=== PATIENT | male | born 1995 | race Caucasian/White ===

== ENCOUNTER → 2023-07-08 07:16 | Outpatient (REF) | payer BC, SELFPAY | LOC: HWRAD 07:16 | PROVIDERS: ATTENDING PHYSICIAN Nurse Practitioner; FAMILY PHYSICIAN Family Medicine | DX: R79.89 Other specified abnormal findings of blood chemistry (principal) | CPT/HCPCS: 76700 ==

== ENCOUNTER 2024-10-25 18:57 | Emergency (ER) | payer OTHER, SELFPAY ==
[2024-10-25 18:59] VITALS: BP 145/86
[2024-10-25 19:23] LABS: % Basophils 0.4 % (0-2); % Eosinophils 0.9 % (0-6); % Immature Granulocytes 0.4 % (0-0.5); % Lymphocytes 24.8 % (20.5-51.1); % Monocytes 10.4 % (1.7-9.3); % Neutrophils 63.1 % (42.2-75.2); Absolute Eosinophils 0.1 10^3/uL (0-0.7); Absolute Lymphocytes 1.3 10^3/uL (1.2-3.4); Absolute Monocytes 0.6 10^3/uL (0.1-0.6); Absolute Neutrophils 3.4 10^3/uL (1.4-6.5); Hematocrit 39.7 % (39.0-52.0); Hemoglobin 14.1 g/dL (13.0-18.0); Mean Corp Hgb Conc. 35.5 g/dL (33.0-37.0); Mean Corpuscular Hgb 31.8 pg (27.0-31.0); Mean Corpuscular Volume 89.6 fL (80.0-94.0); Mean Platelet Volume 9.4 fL (7.4-10.4); Nucleated Red Blood Cells % 0 % (-); Platelet Count 237 10^3/uL (130-400); Red Blood Cell Count 4.43 10^6/uL (4.70-6.10); Red Cell Dist. Width 11.8 % (11.5-14.5); White Blood Cell Count 5.4 10^3/uL (4.8-10.8)
[2024-10-25 19:36] LABS: ALT (SGPT) 166 U/L (0-50); AST (SGOT) 66 U/L (17-59); Alkaline Phosphatase 102 U/L (38-126); Blood Urea Nitrogen 16 mg/dl (9-20); Calcium 9.8 mg/dl (8.4-10.2); Carbon Dioxide 26 mmol/L (22-30); Chloride 106 mmol/L (98-107); Glucose 90 mg/dl (70-99); Potassium 4.2 mmol/L (3.5-5.1); Sodium 140 mmol/L (135-145); Total Bilirubin 0.4 mg/dl (0.2-1.3); Total Protein 7.1 g/dl (6.3-8.2); eGFR > 60.00
[2024-10-25 19:36] LABS: COVID-19 Antigen Negative (Negative)
[2024-10-25 19:47] LABS: Troponin I < 0.012 ng/ml
--- NOTE | 2024-10-25 22:21 | ED.GENMED ---
History of Present Illness
General
Chief Complaint: Weakness
Source: patient and family
Time Seen by Provider: 10/25/24 22:06
History of Present Illness
History of Present Illness:
Pleasant 29-year-old male that presents to the emergency department with malaise. He states he has not been feeling well for several months. He follow-up with his family doctor and had outpatient labs. The labs showed the elevated liver enzymes.
He does report that over the last 2 days his fatigue has increased. Patient was at a meeting yesterday with at work and had 20 seconds of left-sided chest pain. He does report that the pain resolved very quickly and massaging his chest helped ease
the pain. Denies shortness of breath. Patient did not have return of symptoms. He is followed by his family doctor who is monitoring his elevated LFTs.
Past History
Social History
Tobacco: Non-smoker
Alcohol: None
Drug: None
Review of Systems
Review of Systems
Allergies reviewed?: Yes
All Other Systems: ROS reviewed and negative except as documented in HPI and ROS
Constitutional: Reports fatigue
EENT: Reports no symptoms
Respiratory: Reports no symptoms
Cardiac: Reports no symptoms
ABD/GI: Reports no symptoms
: Reports no symptoms
Musculoskeletal: Reports no symptoms
Skin: Reports no symptoms
Neurological: Reports no symptoms
Endocrine: Reports no symptoms
Hematologic/Lymphatic: Reports no symptoms
Psychiatric: Reports anxiety
Phy Exam
General Physical Exam
General Presentation: well appearing and no apparent distress
General Skin: warm and dry
General Habitus: normal
General Mental: alert
General Hydration: appears well hydrated
ENT Exam
ENT Exam: EOMI, pharynx normal, neck supple and normocephalic
Eye Exam
Eye Exam: PERRL, cornea clear and conjunctiva normal
Cardiovascular Exam
Cardiovascular Exam: regular rate/rhythm, no edema, no murmur and normal peripheral pulses
Pulmonary Exam
Pulmonary Exam: lungs clear, no respiratory distress, no rales, no crackles, no rhonchi, no stridor, no wheezing and no cough
Gastrointestinal Exam
Gastrointestinal Exam: normal bowel sounds, non tender, soft, no organomegaly, no pulsatile mass and non distended
Neurological Exam
Neurological Exam: alert, oriented x3, no motor deficits and speech normal
Musculoskeletal Exam
Musculoskeletal Exam: full ROM and no edema
Skin Exam
Skin Exam: normal color, warm/dry, no rash and no petechia
Psychiatric Exam
Psychiatric Exam: normal mood/affect
Course
Orders/Labs/Results
Orders:
Orders
10/25/24 19:02
Electrocardiogram (*1) Urgent
Reason for Study: Chest Pain
EKG- Treatment ONCE
10/25/24 19:09
COVID-19 Antigen Urgent
Source: Nasal Swab
Lyme Progressive Urgent
Comment: ADD ON
Monotest Urgent
Comment: ADD ON
TSH Urgent
Comment: ADD ON
Influenza A+B Rapid Molecular Urgent
GABRIELLE Source: Nasal Swab
Specimen Description:
10/25/24 19:11
Complete Blood Count/With Diff Urgent
Comprehensive Metabolic Panel Urgent
Troponin I Urgent
10/25/24 22:08
US Abdomen Complete/Upper Urgent
Comment:
Reason For Exam: elevated LFTs, weakness
10/25/24 22:23
Add On- LAB Urgent
Tests Added?: TSH, [place], Lyme titer
10/25/24 22:25
0.9% Sodium Chloride 1000 ml [Nss] 1,000 ml IV BOLUS
Abnormal Lab Results
10/25/24
19:11
RBC 4.43 L 10^6/uL
(4.70-6.10)
MCH 31.8 H pg
(27.0-31.0)
Monocytes % 10.4 H %
(1.7-9.3)
AST 66 H U/L
(17-59)
ALT 166 H U/L
(0-50)
10/25/24 19:11
10/25/24 19:11
Vital Signs
Initial and Last Documented VS:
Initial Vital Signs
Temp Pulse Resp BP Pulse Ox
99.5 F 87 16 145/86 98
10/25/24 18:59 10/25/24 18:59 10/25/24 18:59 10/25/24 18:59 10/25/24 18:59
Last Documented Vital Signs
Temp Pulse Resp BP Pulse Ox
99.5 F 66 16 122/76 97
10/25/24 18:59 10/26/24 00:27 10/25/24 18:59 10/26/24 01:00 10/26/24 01:00
*Critical Care Note
Total Time (30-74mins, 75-104mins- exclusive of procedures): Not Applicable
Update Note
Update Note:
NAME: NICK LIMA JR
DATE OF EXAM: 10/25/2024
Patient No: [id number]
Physician: VANE
Date of : 1995
Past Medical History (entered by Technologist):
Reason For Exam (entered by Technologist):
Other Notes (entered by Technologist):
Additional Information (per [facility]iologist):
ULTRASOUND ABDOMEN
IMPRESSION:
Normal gallbladder.
No gallstones, gallbladder wall thickening, or pericholecystic fluid.
Negative sonographic Cohen's sign.
No biliary ductal dilatation.
The visualized common duct measures 4 mm in caliber.
Normal liver, spleen, imaged segments of the aorta, and partially visualized pancreas.
Normal bilateral kidneys.
No hydronephrosis.
ED Attending Note
-
Portions of this chart may have been created with voice recognition software.� Occasional wrong word or��sound alike� substitutions may have occurred due to the inherent limitations of voice recognition software.
Discharge Plan
Departure
Patient Disposition: Home (Routine Discharge)
Date of Disposition: 10/26/24
Time of Disposition: 00:56
Patient with high blood pressure during this ER visit?: Yes
Condition: Fair
Discharge Problem:
Weakness, Elevated LFTs
Instructions: Generalized Weakness (DC), Liver panel, BLOOD PRESSURE
Referrals:
Heather Aleman NP [Family Provider, Internal Medicine]
Fani Andersen DO [Active, Gastroenterology]
Activity Restrictions/Additional Instructions:
Thank You for choosing [facility].
It was a pleasure meeting you and taking part in your care. We hope for your continued healing and wellness.
Please read discharge instructions in their entirety. However, they are for general education and may not describe your exact diagnosis at discharge. Information on your ER visit and medical conditions were discussed with you along with appropriate
follow up information...
If indicated, please take your medications as instructed and indicated on discharge paperwork.
Please schedule a follow up appointment as directed. Call to schedule an appointment
Please return to the emergency department with ANY change in, persisting, or worsening of symptoms. If any of your symptoms do not improve, or persist, or become more severe within 6-12 hours, please return to the emergency department for further
care.
Please return to the emergency department if you develop a headache, neck pain/stiffness, fever greater than 100.4F, chest pain, shortness of breath, persistent nausea, vomiting, slurred speech, difficulty walking, numbness/tingling, weakness, signs
of infection or any other symptoms that are worrisome to you.
If you have any questions or concerns please do not hesitate to call the Hospital at or E-mail me directly at [email or web address]
Interventions
Interventions:
*Risk Screen - Suicide Last Done: 10/25/24 22:49
*General Assessment Last Done: 10/25/24 22:49
*Neglect/Abuse Screening Last Done: 10/25/24 22:49
*ED- Fall Risk Assessment Last Done: 10/25/24 22:49
*ED COVID-19 Vaccine History Last Done: 10/25/24 22:49
*Nursing Disposition Last Done: 10/26/24 01:09
ED- Cardiac Assessment Last Done: 10/25/24 22:50
ED- Neurological Assessment Last Done: 10/25/24 22:50
ED- Pulmonary Assessment Last Done: 10/25/24 22:50
Discharge Date and Time
Discharge Date/Time: 10/26/24 01:09
Print Language: SINHALA
[2024-10-25] MEDS: NSS 1000 IV (22:58)
[2024-10-25 23:03] LABS: Monotest Negative (Negative)
[2024-10-25 23:36] LABS: TSH 2.33 uIU/ml (0.47-4.68)
[2024-10-26 00:05] VITALS: BP 133/62
[2024-10-26 01:00] VITALS: BP 122/76
[2024-10-27 16:08] LABS: Lyme Antibody Screen, EIA Negative (Negative)
== END 2024-10-26 01:09 | disposition home or self-care (01) ==
LOC: EMR 18:57
PROVIDERS: Emergency Medicine; EMERGENCY PHYSICIAN Student in an Organized Health Care Education/Training Program; FAMILY PHYSICIAN Nurse Practitioner Family
DX: R53.1 Weakness (principal); R07.89 Other chest pain; R53.83 Other fatigue; R53.81 Other malaise; R94.5 Abnormal results of liver function studies; Z11.52 Encounter for screening for COVID-19; R03.0 Elevated blood-pressure reading, without diagnosis of hypertension; Z88.1 Allergy status to other antibiotic agents; Z88.2 Allergy status to sulfonamides
CPT/HCPCS: 99284; 96360; 76700; 80053; 84443; 84484; 85025; 86308; 86618; 87502; 87811; 93005